=== PATIENT | male | born 1960 | race Caucasian/White ===

== ENCOUNTER 2024-03-31 11:34 | Outpatient (CLI) | payer OTHER | END 2024-03-31 11:35 | disposition home or self-care (01) | LOC: LABBT 11:34 | PROVIDERS: ATTEND Student in an Organized Health Care Education/Training Program | DX: Z01.818 Encounter for other preprocedural examination (principal); I25.119 Atherosclerotic heart disease of native coronary artery with unspecified angina pectoris | CPT/HCPCS: 71046 ==

== ENCOUNTER 2024-03-31 12:00 | Inpatient (IN) | payer OTHER ==
[2024-03-31 12:43] LABS: Hematocrit 42.7 % (38.8-50.0); Hemoglobin 14.7 g/dL (13.5-17.5); Mean Corpuscular HGB CONC 34.4 g/dL (32.0-36.0); Mean Corpuscular Hemoglobin 32.4 pg (27.0-33.0); Mean Corpuscular Volume 94.1 fL (81.2-95.1); Mean Platelet Volume 9.8 fL (7.4-10.4); Platelet Count 199 10x3/uL (150-450); Red Blood Cell (RBC) Count 4.54 10x6/uL (4.32-5.72)
[2024-03-31 13:25] LABS: Anion Gap 11 mmol/L (10-20); BUN (Urea Nitrogen) 10 mg/dL (8.4-25.7); Calc. Creatinine Clearance 0 mL/min (70-130); Calcium 9.2 mg/dL (7.8-10.44); Carbon Dioxide 29 mmol/L (23-31); Chloride 102 mmol/L (98-107); Estimated GFR 97; Glucose 96 mg/dL (80-115); Potassium 4.5 mmol/L (3.5-5.1); Sodium 137 mmol/L (136-145)
[2024-04-03] MEDS ORDERED: Lidocaine 1% MPF 2 ML VIAL ONE (06:33)
[2024-04-03] MEDS ORDERED: Albumin 5% 0 ML ONE (06:40)
[2024-04-03] MEDS ORDERED: Bupivacaine PF 0.5% 30 ML VIAL ONE (06:40)
[2024-04-03] MEDS ORDERED: PHENYLEPHRINE-NS 100 MCG/ML 10 ML SYRINGE ONE ×2 (06:40→08:59)
[2024-04-03] MEDS ORDERED: EPINEPHrine 1 MG/ML VIAL ONE (06:40)
[2024-04-03] MEDS ORDERED: Heparin 10,000 UNITS/1 ML VIAL 30,000 UNITS in Sodium Chloride 0.9% 1,000 ML FS SCH (07:00)
[2024-04-03] MEDS ORDERED: Fentanyl 250 MCG/5 ML VIAL ONE (07:17)
[2024-04-03] MEDS ORDERED: PROPOFOL 20 ML ONE (07:19)
[2024-04-03] MEDS ORDERED: Heparin 30,000 units/30 ml VIAL ONE (07:20)
[2024-04-03] MEDS ORDERED: Heparin 5,000 UNITS/ML VIAL ONE (07:20)
[2024-04-03] MEDS ORDERED: Mannitol 12.5 GM/50 ML ONE (07:20)
[2024-04-03] MEDS ORDERED: Aminocaproic Acid 5 GM/20 ML VIAL ONE ×2 (07:20→08:59)
[2024-04-03] MEDS ORDERED: Lidocaine 2% PF 100 mg/5 ml Syringe ONE (07:20)
[2024-04-03] MEDS ORDERED: Calcium Chloride 1 GM/10 ML Abboject SYRINGE ONE (07:20)
[2024-04-03] MEDS ORDERED: Protamine Sulfate 250 MG/25 ML VIAL ONE (07:20)
[2024-04-03] MEDS ORDERED: Sodium Bicarb 50 mEq/50 ML VIAL ONE (07:20)
[2024-04-03] MEDS ORDERED: Thrombin 5000 UNITS/5 ML VIAL ONE (07:20)
[2024-04-03] MEDS ORDERED: Magnesium 5 GM/10 ML VIAL ONE (07:20)
[2024-04-03] MEDS ORDERED: Potassium Chloride 60 mEq (30 mL) VIAL ONE (07:20)
[2024-04-03] MEDS ORDERED: ePHEDrine Sulfate 50 MG/10 ML VIAL ONE (07:20)
[2024-04-03] MEDS ORDERED: Papaverine 60 MG/2 ML VIAL ONE (07:20)
[2024-04-03] MEDS ORDERED: Vancomycin 1 GM VIAL ONE (07:20)
[2024-04-03] MEDS ORDERED: Cardioplegic Soln 1,000 ML BAG ONE (07:20)
[2024-04-03] MEDS ORDERED: CEFAZOLIN 2 GM VIAL ONE (07:23)
[2024-04-03] MEDS ORDERED: Sodium Chloride 0.9% 100 ML ONE (07:23)
[2024-04-03] MEDS ORDERED: Ondansetron PF 4 MG/2 ML Vial ONE (08:59)
[2024-04-03] MEDS ORDERED: NOREPINEPHRINE 8 MG/250 ML-D5W 250 ML ONE (08:59)
[2024-04-03] MEDS ORDERED: Rocuronium Bromide 10 MG/ML (10ML VIAL) ONE (08:59)
[2024-04-03] MEDS ORDERED: Etomidate 40 MG (20 mL) VIAL ONE (08:59)
[2024-04-03] MEDS ORDERED: Sevoflurane 250 ML INH ANEST BOTTLE ONE (08:59)
[2024-04-03] MEDS ORDERED: Lidocaine 1% PF 5 ML VIAL ONE (08:59)
[2024-04-03] MEDS ORDERED: Midazolam HCl 2 mg/2 ml Vial ONE ×2 (09:00→09:58)
[2024-04-03] MEDS ORDERED: Dexamethasone 20 MG/5 ML VIAL ONE (10:44)
[2024-04-03] MEDS ORDERED: Morphine 2 MG/ML VIAL SLOW IVP PRN (11:23)
[2024-04-03] MEDS ORDERED: Ipratropium/Albuterol 3 ML NEB NEB PRN (11:23)
[2024-04-03] MEDS ORDERED: fentaNYL 50 mcg/mL 1 mL Vial SLOW IVP PRN ×2 (11:23)
[2024-04-03] MEDS ORDERED: Bisacodyl 10 MG SUPP PR PRN (11:23)
[2024-04-03] MEDS ORDERED: Guaifenesin DM 100-10/5 ML UDCUP PO PRN (11:23)
[2024-04-03] MEDS ORDERED: Bisacodyl 5 MG TAB PO PRN (11:23)
[2024-04-03] MEDS ORDERED: traMADol HCl 50 MG TAB PO PRN ×2 (11:23)
[2024-04-03] MEDS ORDERED: Mag-Al 1200 mg/1200 mg/30 ML UDCUP PO PRN (11:23)
[2024-04-03] MEDS ORDERED: Albumin 5% 12.5 GM (250 mL) BOT IVPB PRN (11:23)
[2024-04-03] MEDS ORDERED: Promethazine HCl 25 MG/ML VIAL IM PRN (11:23)
[2024-04-03] MEDS ORDERED: Ondansetron PF 4 MG/2 ML Vial IVP PRN (11:23)
[2024-04-03] MEDS ORDERED: hydrALAZINE 20 MG/ML VIAL SLOW IVP PRN (11:23)
[2024-04-03 11:35] LABS: Actual Bicarbonate (HCO3a) 19.1 mEq/L (22-28); Base Excess (BEa) -4.8 mEq/L (-2.0 to +3.0); CO2 Tension 32.5 mmHg (35.0-45.0); Calcium, Ionized (arterial) 1.14 mmol/L (1.12-1.30); Carboxyhemoglobin (COHb) 0.9 gm% (0.0-3.0); Hematocrit-ABG 44 % (42.0-52.0); Hemoglobin (Hb) 15.1 g/dL (14.0-18.0); Potassium - ABG Lab 3.76 mmol/L (3.70-5.30); pH, Arterial 7.387 (7.35-7.45)
[2024-04-03 11:36] LABS: ALV-art Gradient 176.175 mmHg (0-20); Puncture Site Arterial Line
[2024-04-03] MEDS ORDERED: Dextrose 50% Abboject 50 ML SYRINGE SLOW IVP PRN (11:45)
[2024-04-03] MEDS ORDERED: INSULIN REGULAR IN 0.9 % NACL 100 UNITS in Premix 1 BAG IVPB SCH (11:45)
[2024-04-03] MEDS ORDERED: Glucagon 1 MG/ML KIT SC PRN (11:45)
[2024-04-03] MEDS ORDERED: Insulin Reg, Human 100 UNITS in Sodium Chloride 0.9% 100 ML IVPB SCH (11:45)
[2024-04-03] MEDS ORDERED: Dextrose 5% in Water 1,000 ML IV PRN (11:45)
[2024-04-03 11:46] LABS: #Basophils 0.07 10x3/uL (0.0-0.2); %Basophils 0.3 % (0.0-1.0); %Eosinophils 1.1 % (0.0-10.0); %Lymphocytes 15.7 % (21.0-51.0); %Neutrophils 74.9 % (42.0-75.0); Hematocrit 43.1 % (42.0-52.0); Hemoglobin 14.7 g/dL (14.0-18.0); Mean Corpuscular HGB CONC 34.1 g/dL (32.0-36.0); Mean Corpuscular Hemoglobin 31.3 pg (27.0-31.0); Mean Corpuscular Volume 91.7 fL (78.0-98.0); Mean Platelet Volume 9.8 fL (7.4-10.4); Platelet Count 166 10x3/uL (130-400)
[2024-04-03 12:00] LABS: INR-International Normal Ratio 1.1; Prothrombin Time 14.7 sec (12.0-14.7)
[2024-04-03] MEDS: Acetaminophen 325 MG TAB PO SCH (12:06)
[2024-04-03] MEDS: Magnesium 2 GM/50 ML(in water) 2 GM in Premix 1 BAG IVPB SCH (12:06)
[2024-04-03] MEDS: Insulin Regular, Human 100 UNIT/ML 10 ML VIAL SC PRN (12:07)
[2024-04-03] MEDS: Ketorolac Tromethamine 30 MG (1 mL) VIAL IVP SCH (12:07)
[2024-04-03] MEDS: Sodium Chloride 0.9% 1,000 ML IV SCH (12:08)
[2024-04-03 12:12] LABS: Anion Gap 13 mmol/L (10-20); BUN (Urea Nitrogen) 9 mg/dL (8.4-25.7); Calc. Creatinine Clearance 122 mL/min (70-130); Calcium 8.2 mg/dL (7.8-10.44); Carbon Dioxide 20 mmol/L (23-31); Chloride 107 mmol/L (98-107); Estimated GFR 103; Glucose 137 mg/dL (80-115); Potassium 3.7 mmol/L (3.5-5.1); Sodium 136 mmol/L (136-145)
[2024-04-03] MEDS: Post-Op Insulin Drip Protocol IVPB ONE (12:22)
[2024-04-03] MEDS: Albumin 5% 12.5 GM (250 mL) BOT IVPB PRN (12:43)
[2024-04-03] MEDS: NOREPINEPHRINE 8 MG/250 ML-D5W 250 ML IVPB PRN (12:52)
[2024-04-03 12:58] LABS: Actual Bicarbonate (HCO3a) 16.8 mEq/L (22-28); Base Excess (BEa) -7.1 mEq/L (-2.0 to +3.0); CO2 Tension 29.7 mmHg (35.0-45.0); Calcium, Ionized (arterial) 1.08 mmol/L (1.12-1.30); Carboxyhemoglobin (COHb) 0.5 gm% (0.0-3.0); Hematocrit-ABG 41 % (42.0-52.0); O2 Tension (PaO2), arterial 154.4 mmHg (> 80.0); Potassium - ABG Lab 3.82 mmol/L (3.70-5.30); pH, Arterial 7.371 (7.35-7.45)
[2024-04-03 12:59] LABS: ALV-art Gradient 93.675 mmHg (0-20); Puncture Site Arterial Line
[2024-04-03 13:01] VITALS: BMI 27.8
[2024-04-03] MEDS: Aspirin Chewable 81 MG TAB PO SCH (14:28)
[2024-04-03] MEDS: CEFAZOLIN 2 GM in Sodium Chloride 0.9% 100 ML IVPB SCH (14:28)
[2024-04-03] MEDS: Potassium Chloride 20 MEQ (100 mL) BAG IVPB PRN (16:26)
[2024-04-03 18:59] LABS: Hematocrit 35.1 % (42.0-52.0)
[2024-04-03 19:00] LABS: Hemoglobin 11.7 g/dL (14.0-18.0)
[2024-04-03 19:08] LABS: Potassium 4.6 mmol/L (3.5-5.1)
[2024-04-03] MEDS: Atorvastatin Calcium 20 MG TAB PO SCH (19:43)
[2024-04-03] MEDS: Famotidine/PF 20 mg/2ml Vial SLOW IVP SCH (19:43)
[2024-04-04 05:16] LABS: #Basophils Less than 0.03 10x3/uL (0.0-0.2); #Eosinphils Less than 0.03 10x3/uL (0.0-0.7); %Basophils 0.1 % (0.0-1.0); %Eosinophils 0.1 % (0.0-10.0); %Lymphocytes 16.4 % (21.0-51.0); %Monocytes 13.4 % (0.0-10.0); %Neutrophils 69.7 % (42.0-75.0); Hematocrit 28.9 % (42.0-52.0); Hemoglobin 9.6 g/dL (14.0-18.0); Mean Corpuscular HGB CONC 33.2 g/dL (32.0-36.0); Mean Corpuscular Hemoglobin 31.2 pg (27.0-31.0); Mean Corpuscular Volume 93.8 fL (78.0-98.0); Mean Platelet Volume 9.7 fL (7.4-10.4); Platelet Count 124 10x3/uL (130-400); RBC Distribution Width 13.1 % (11.5-14.5); Red Blood Cell (RBC) Count 3.08 mill/uL (4.70-6.10)
[2024-04-04 05:38] LABS: Anion Gap 11 mmol/L (10-20); BUN (Urea Nitrogen) 9 mg/dL (8.4-25.7); Calc. Creatinine Clearance 129 mL/min (70-130); Calcium 7.8 mg/dL (7.8-10.44); Carbon Dioxide 22 mmol/L (23-31); Chloride 107 mmol/L (98-107); Estimated GFR 104; Glucose 89 mg/dL (80-115); Potassium 4.1 mmol/L (3.5-5.1); Sodium 136 mmol/L (136-145)
[2024-04-04] MEDS: Aspirin 325 MG TAB PO SCH (09:52)
[2024-04-04] MEDS: Magnesium 2 GM/50 ML(in water) 2 GM in Premix 1 BAG IVPB SCH (09:53)
[2024-04-04] MEDS ORDERED: Insulin Glargine 30 UNITS/0.3 ML VIAL SC PRN (11:41)
[2024-04-04] MEDS: Albumin 5% 12.5 GM (250 mL) BOT IVPB SCH (20:35)
[2024-04-05 04:08] LABS: Anion Gap 9 mmol/L (10-20); BUN (Urea Nitrogen) 10 mg/dL (8.4-25.7); Calc. Creatinine Clearance 129 mL/min (70-130); Carbon Dioxide 22 mmol/L (23-31); Chloride 108 mmol/L (98-107); Estimated GFR 104; Glucose 101 mg/dL (80-115); Sodium 135 mmol/L (136-145)
[2024-04-05 04:29] LABS: #Basophils Less than 0.03 10x3/uL (0.0-0.2); %Basophils 0.2 % (0.0-1.0); %Eosinophils 0.3 % (0.0-10.0); %Lymphocytes 7.2 % (21.0-51.0); %Monocytes 11.6 % (0.0-10.0); %Neutrophils 80.1 % (42.0-75.0); Hematocrit 26.6 % (42.0-52.0); Hemoglobin 8.9 g/dL (14.0-18.0); Mean Corpuscular HGB CONC 33.5 g/dL (32.0-36.0); Mean Corpuscular Hemoglobin 32.1 pg (27.0-31.0); Mean Platelet Volume 9.9 fL (7.4-10.4); Platelet Count 108 10x3/uL (130-400); RBC Distribution Width 13.2 % (11.5-14.5); Red Blood Cell (RBC) Count 2.77 mill/uL (4.70-6.10)
[2024-04-05] MEDS: Furosemide 20 MG TAB PO SCH (09:30)
[2024-04-05 12:13] VITALS: BP 112/53
[2024-04-06 04:24] LABS: Anion Gap 10 mmol/L (10-20); BUN (Urea Nitrogen) 11 mg/dL (8.4-25.7); Calc. Creatinine Clearance 128 mL/min (70-130); Carbon Dioxide 22 mmol/L (23-31); Chloride 108 mmol/L (98-107); Estimated GFR 104; Glucose 83 mg/dL (80-115); Potassium 4.2 mmol/L (3.5-5.1); Sodium 136 mmol/L (136-145)
[2024-04-06 04:46] LABS: #Basophils Less than 0.03 10x3/uL (0.0-0.2); %Basophils 0.2 % (0.0-1.0); %Eosinophils 3.8 % (0.0-10.0); %Lymphocytes 10.7 % (21.0-51.0); %Monocytes 12.4 % (0.0-10.0); %Neutrophils 72.1 % (42.0-75.0); Hemoglobin 9.1 g/dL (14.0-18.0); Mean Corpuscular HGB CONC 33.8 g/dL (32.0-36.0); Mean Corpuscular Hemoglobin 31.3 pg (27.0-31.0); Mean Corpuscular Volume 92.4 fL (78.0-98.0); Platelet Count 113 10x3/uL (130-400); RBC Distribution Width 13.1 % (11.5-14.5); Red Blood Cell (RBC) Count 2.91 mill/uL (4.70-6.10)
[2024-04-06 08:07] VITALS: TEMP 98.3
[2024-04-11 09:37] LABS: Actual Bicarbonate (HCO3a) 23.6 mEq/L (22-28); Analyzer IN Cardio OR; Base Excess (BEa) 0.8 mEq/L (-2.0 to +3.0); CO2 Tension 32.5 mmHg (35.0-45.0); Calcium, Ionized (arterial) 1.13 mmol/L (1.12-1.30); Carboxyhemoglobin (COHb) 0.6 gm% (0.0-3.0); Hematocrit-ABG 44 % (42.0-52.0); Hemoglobin (Hb) 14.8 g/dL (14.0-18.0); O2 Tension (PaO2), arterial 153.1 mmHg (> 80.0); Potassium - ABG Lab 3.97 mmol/L (3.70-5.30); pH, Arterial 7.478 (7.35-7.45)
[2024-04-11 09:38] LABS: Actual Bicarbonate (HCO3a) 24.2 mEq/L (22-28); Analyzer IN Cardio OR; CO2 Tension 42.5 mmHg (35.0-45.0); Calcium, Ionized (arterial) 1.04 mmol/L (1.12-1.30); Carboxyhemoglobin (COHb) 0.3 gm% (0.0-3.0); Hematocrit-ABG 34 % (42.0-52.0); Hemoglobin (Hb) 11.6 g/dL (14.0-18.0); O2 Tension (PaO2), arterial 321.9 mmHg (> 80.0); pH, Arterial 7.374 (7.35-7.45)
[2024-04-11 09:38] LABS: Actual Bicarbonate (HCO3a) 20.9 mEq/L (22-28); Analyzer IN Cardio OR; Base Excess (BEa) -2.9 mEq/L (-2.0 to +3.0); CO2 Tension 33.7 mmHg (35.0-45.0); Calcium, Ionized (arterial) 1.13 mmol/L (1.12-1.30); Carboxyhemoglobin (COHb) 0.4 gm% (0.0-3.0); Hematocrit-ABG 41 % (42.0-52.0); Hemoglobin (Hb) 13.9 g/dL (14.0-18.0); O2 Tension (PaO2), arterial 100.5 mmHg (> 80.0); Potassium - ABG Lab 3.53 mmol/L (3.70-5.30)
[2024-04-11 09:38] LABS: Actual Bicarbonate (HCO3a) 26.1 mEq/L (22-28); Analyzer IN Cardio OR; Base Excess (BEa) 0.4 mEq/L (-2.0 to +3.0); CO2 Tension 46.8 mmHg (35.0-45.0); Calcium, Ionized (arterial) 0.98 mmol/L (1.12-1.30); Carboxyhemoglobin (COHb) 0.3 gm% (0.0-3.0); Hematocrit-ABG 32 % (42.0-52.0); O2 Tension (PaO2), arterial 341.9 mmHg (> 80.0); Potassium - ABG Lab 4.83 mmol/L (3.70-5.30); pH, Arterial 7.365 (7.35-7.45)
[2024-04-11 09:38] LABS: Actual Bicarbonate (HCO3a) 23.5 mEq/L (22-28); Analyzer IN Cardio OR; Base Excess (BEa) -0.5 mEq/L (-2.0 to +3.0); CO2 Tension 36.7 mmHg (35.0-45.0); Calcium, Ionized (arterial) 1.11 mmol/L (1.12-1.30); Carboxyhemoglobin (COHb) 0.3 gm% (0.0-3.0); Hematocrit-ABG 41 % (42.0-52.0); O2 Tension (PaO2), arterial 145.8 mmHg (> 80.0); Potassium - ABG Lab 3.61 mmol/L (3.70-5.30); pH, Arterial 7.425 (7.35-7.45)
[2024-04-11 09:46] LABS: Puncture Site Arterial Line
[2024-04-11 09:46] LABS: Puncture Site Arterial Line
[2024-04-11 09:46] LABS: Puncture Site Arterial Line
[2024-04-11 09:47] LABS: Puncture Site Arterial Line
[2024-04-11 09:47] LABS: Puncture Site Arterial Line
== END 2024-04-06 10:36 | disposition home or self-care (01) | DRG 236 ==
LOC: SURG A 04-03 05:58 → CCU 04-03 10:49
PROVIDERS: ADMIT Student in an Organized Health Care Education/Training Program; ATTEND Student in an Organized Health Care Education/Training Program
PROC: 02100Z9 Bypass Coronary Artery, One Artery from Left Internal Mammary, Open Approach (ICD-10-PCS; principal; 2024-04-03)
PROC: 02L70CK Occlusion of Left Atrial Appendage with Extraluminal Device, Open Approach (ICD-10-PCS; 2024-04-03)
PROC: 4A033R1 Measurement of Arterial Saturation, Peripheral, Percutaneous Approach (ICD-10-PCS; 2024-04-03)
DX: I25.10 Atherosclerotic heart disease of native coronary artery without angina pectoris (principal); E78.5 Hyperlipidemia, unspecified; I44.7 Left bundle-branch block, unspecified; Z90.89 Acquired absence of other organs; Z98.890 Other specified postprocedural states; Z95.1 Presence of aortocoronary bypass graft; Z79.82 Long term (current) use of aspirin; Z79.899 Other long term (current) drug therapy; Z79.4 Long term (current) use of insulin; K21.9 Gastro-esophageal reflux disease without esophagitis; Z87.891 Personal history of nicotine dependence
CPT/HCPCS: 36416; 71045; 80048; 82805; 85025; 85027; 85610; 85730; 86850; 86900; 86901; 93005; 93010; 93798; 94002; A4311; C1751; C1889; J0171; J0665; J1100; J1642; J1644; J1815; J1885; J2001; J2150; J2250; J2405; J2440; J2704; J2720; J3010; J3370; J3475; J3480; J3490; J7050; P9045; S0017; S0028

== ENCOUNTER 2024-07-12 08:22 | Outpatient (CLI) | payer OTHER ==
[2024-07-12 12:33] LABS: #Basophils 0.03 10x3/uL (0.0-0.2); %Basophils 0.4 % (0.0-1.0); %Eosinophils 2.9 % (0.0-10.0); %Lymphocytes 32.6 % (21.0-51.0); %Monocytes 10.2 % (0.0-10.0); %Neutrophils 53.6 % (42.0-75.0); Hematocrit 46.1 % (42.0-52.0); Hemoglobin 14.9 g/dL (14.0-18.0); Mean Corpuscular HGB CONC 32.3 g/dL (32.0-36.0); Mean Corpuscular Hemoglobin 29.3 pg (27.0-31.0); Mean Corpuscular Volume 90.6 fL (78.0-98.0); Mean Platelet Volume 10.1 fL (7.4-10.4); Platelet Count 191 10x3/uL (130-400); RBC Distribution Width 13.8 % (11.5-14.5); Red Blood Cell (RBC) Count 5.09 mill/uL (4.70-6.10)
[2024-07-12 12:54] LABS: Anion Gap 11 mmol/L (10-20); BUN (Urea Nitrogen) 9 mg/dL (8.4-25.7); Calc. Creatinine Clearance 0 mL/min (70-130); Calcium 9.3 mg/dL (7.8-10.44); Carbon Dioxide 25 mmol/L (23-31); Chloride 104 mmol/L (98-107); Estimated GFR 96; Glucose 90 mg/dL (80-115); Potassium 4.1 mmol/L (3.5-5.1); Sodium 136 mmol/L (136-145)
== END 2024-07-12 08:23 | disposition home or self-care (01) ==
LOC: LABBT 08:22
PROVIDERS: ATTEND Surgery
DX: Z01.818 Encounter for other preprocedural examination (principal); K40.90 Unilateral inguinal hernia, without obstruction or gangrene, not specified as recurrent
CPT/HCPCS: 80048; 85025; 93005; 93010